=== PATIENT | male | born 1970 | race Hispanic/Latino ===

== ENCOUNTER 2020-06-16 22:38 | Emergency (ER) | payer OTHER ==
[2020-06-16] MEDS ORDERED: ACETAMINOPHEN EXTRA STRENGTH 500 MG TABLET ONE (23:17)
[2020-06-16] MEDS ORDERED: IBUPROFEN 600 MG TABLET ONE (23:17)
== END 2020-06-17 00:11 ==
LOC: EDH 22:38
DX: J06.9 Acute upper respiratory infection, unspecified (principal); Z20.828 Contact with and (suspected) exposure to other viral communicable diseases
CPT/HCPCS: 87426; 99283; U0003

== ENCOUNTER 2024-12-29 08:34 | Emergency (ER) | payer MEDICAID ==
[~2024-12-29] VITALS: Ht 175.3 cm; Wt 88.0 kg
[2024-12-29 08:57] LABS: BASOPHILS # (AUTO) 0.03 K/uL (0.00-0.20); BASOPHILS % (AUTO) 0.3 % (0.0-5.0); EOSINOPHILS # (AUTO) 0.17 K/uL (0.00-0.70); EOSINOPHILS % (AUTO) 1.8 % (0.0-8.0); HEMATOCRIT 45.5 % (42-54); IMMATURE GRANULOCYTE ABSOLUTE 0.03 K/uL (0-1); LYMPHOCYTES # (AUTO) 1.1 K/uL (1.0-4.8); LYMPHOCYTES % (AUTO) 11.3 % (21.0-51.0); MEAN CORPUSCULAR HEMOGLOBIN 31.9 pg (27.0-33.0); MEAN CORPUSCULAR HGB CONC 34.9 g/dL (32.0-36.0); MEAN CORPUSCULAR VOLUME 91.4 fL (79-99); MONOCYTES # (AUTO) 0.6 K/uL (0.1-1.0); NEUTROPHILS # (AUTO) 7.7 K/uL (1.8-7.7); NEUTROPHILS % (AUTO) 80.3 % (40.0-77.0); PLATELET COUNT (AUTO) 229 K/uL (130-400); RED BLOOD CELL COUNT(AUTO) 4.98 MIL/uL (4.50-6.20); RED CELL DISTRIBUTION WIDTH 12.6 % (11.0-15.5); WHITE BLOOD COUNT (AUTO) 9.5 K/uL (4.8-10.8)
[2024-12-29 09:06] LABS: INR 0.97 (0.85-1.15); PROTHROMBIN TIME 10.3 SEC (9.6-11.6)
[2024-12-29 09:08] LABS: PARTIAL THROMBOPLASTIN TIME 30.1 SEC (26.3-35.5)
[2024-12-29 09:13] LABS: POTASSIUM 4.1 mmol/L (3.5-5.1)
[2024-12-29 09:17] LABS: MAGNESIUM 2.1 mg/dL (1.80-2.40)
--- NOTE | 2024-12-29 09:45 | HMCIMG ---
PORTABLE CHEST RADIOGRAPH INDICATION: SOB COMPARISON: None FINDINGS: equipment monitor phototypesetting leads overlie the field of view. Shallow inspiration. Heart size is normal. The pulmonary vascularity appears normal. Generalized subpleural scarring. No evidence for consolidation. Linear opacities at both lung bases. No significant pleural effusion noted. No pneumothorax detected. IMPRESSION: Shallow inspiration. Bibasilar atelectasis and/or evolving pneumonia. Follow-up chest radiograph is advised in order to ensure resolution.
[2024-12-29 09:46] LABS: B-TYPE NATRIURETIC PEPTIDE 7 pg/mL (0-100)
--- NOTE | 2024-12-29 10:13 | EKG ---
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
[2024-12-29 10:20] LABS: SARS-CoV-2, RNA, NAAT NEGATIVE SARS CoV-2 (NEGATIVE)
[2024-12-29 10:24] LABS: INFLUENZA TYPE A Negative For Type A (NEGATIVE); INFLUENZA TYPE B Negative For Type B (NEGATIVE)
[2024-12-29 11:30] LABS: APPEARANCE,URINE CLEAR (CLEAR); BILIRUBIN,URINE NEGATIVE (NEGATIVE); COLOR,URINE YELLOW (YELLOW); GLUCOSE, URINE (UA) NEGATIVE (NEGATIVE); KETONES,URINE NEGATIVE (NEGATIVE); LEUKOCYTE ESTERASE ,URINE NEGATIVE Leu/uL (NEGATIVE); NITRATE,URINE NEGATIVE (NEGATIVE); OCCULT BLOOD,URINE NEGATIVE (NEGATIVE); PROTEIN,URINE NEGATIVE (NEGATIVE); UROBILINOGEN,URINE 0.2 mg/dL (0.2-1.0)
[2024-12-29 11:31] LABS: ADD UA MICROSCOPIC NO
[2024-12-29 11:37] LABS: AMPHET/METH SCREEN,URINE NEGATIVE (NEGATIVE); BARBITURATE SCREEN, URINE NEGATIVE (NEGATIVE); BENZODIAZEPINES SCREEN,URINE NEGATIVE (NEGATIVE); CANNABINOID SCREEN,URINE NEGATIVE (NEGATIVE); COCAINE SCREEN,URINE POSITIVE (NEGATIVE); OPIATE SCREEN,URINE NEGATIVE (NEGATIVE); PHENCYCLIDINE SCREEN,URINE NEGATIVE (NEGATIVE)
--- NOTE | 2024-12-29 12:33 | ERN ---
General Chief Complaint: Shortness of Breath Stated Complaint: SOB Time Seen by MD: 08:38 Source: patient History of Present Illness Initial Comments Patient is a 54-year-old male coming in to be evaluated for right rib pain. Per patient he felt something pop and states he pushed on it and it popped again. Mild shortness of breath. Symptoms began earlier today. Allergies: Coded Allergies: No Known Drug Allergies (Unverified Allergy, Unknown, 12/29/24) Past Medical History Past Medical History: Anxiety, Bipolar, Depression, Hypertension Past Surgical History: Other ROS Dictation CONSTITUTIONAL: No chills, no fever, no weakness, no diaphoresis, no malaise. HEAD/FACE: No signs of trauma. EENT: No eye pain, no blurred vision, no tearing, no double vision, no ear pain, no ear discharge, no nose pain, no nasal congestion, no throat pain, no throat swelling, no mouth pain. RESPIRATORY: No cough, no orthopnea, no SOB, no stridor, no wheezing. CARDIOVASCULAR: chest pain, no edema, no palpitations, no syncope. GASTROINTESTINAL/ABDOMINAL: No abdominal pain, no constipation, no diarrhea, no nausea, no vomiting. GENITOURINARY: No abnormal discharge, no dysuria, no frequent urination, no hematuria. No complaints of pain in the genitals. MUSCULOSKELETAL: No back pain, no gout, no joint pain, no joint swelling, no muscle pain, no muscle stiffness, no neck pain. INTEGUMENTARY: No change in color, no change in hair/nails, no dryness, no lesion, no lumps, no rash. NEUROLOGICAL/PSYCH: No anxiety, not depressed, no emotional problem, no headache, no numbness, no pre-existing deficit, no history of seizures, no tremors, no weakness. HEMATOLOGIC/LYMPHATIC: Not anemic, no history of blood clots, no apparent bleeding, no bruising, glands not swollen. All Systems Negative, Except as Noted. Physical Exam Physical Exam Dictation VITAL SIGNS: Reviewed. GENERAL APPEARANCE: Alert, oriented x3, no acute distress, obese. HEAD AND FACE: Non-traumatic. EYES: PERRL, pink conjunctivas, eyelid no trauma, anterior chamber clear. EARS: Pinnas intact and no signs of trauma or erythema. Ear canals clear and no discharge. TMs no erythema. NOSE: No discharge, no bleeding. OROPHARYNX: Mouth normal, teeth no caries, tongue pink. Pharynx clear, no erythema. Tonsils no exudates, no abscesses noted. Mucous membrane moist. NECK: Supple, non-tender, no thyromegaly, no masses, no JVD, no bruits. BREAST: Deferred. CHEST: No tenderness, no crepitus, no paradoxical movement, no retractions. LUNGS: Clear, well-ventilated, symmetric, no rales, no wheezing, no rhonchi, no stridor, good breath sounds bilaterally. HEART: Regular rate, regular rhythm, no murmur, no gallops. VASCULAR: No peripheral edema. ABDOMEN: Soft, positive bowel sounds, nondistended, no guarding, right upper quadrant tender, no rebound, no masses no hepatomegaly, no splenomegaly, no Lewis's sign, no hernias. RECTAL: Deferred. GENITAL: Deferred. NEUROLOGICAL: Normal speech, gross motor function intact, gross sensory function intact. MUSCULOSKELETAL: Neck nontender, full range of motion, back nontender, full range of motion. EXTREMITIES: Nontender, full range of motion. SKIN: Color pink, dry, no turgor, no rash, no lacerations, no abrasions, no contusions. LYMPHATICS: Deferred. Results Laboratory and Microbiology Lab and Micro Result Laboratory Tests Test 12/29/24 08:52 12/29/24 09:55 12/29/24 11:00 White Blood Count 9.5 K/uL (4.8-10.8) Red Blood Count 4.98 MIL/uL (4.50-6.20) Hemoglobin 15.9 g/dL (14.0-18.0) Hematocrit 45.5 % (42-54) Mean Corpuscular Volume 91.4 fL (79-99) Mean Corpuscular Hemoglobin 31.9 pg (27.0-33.0) Mean Corpuscular Hemoglobin Concent 34.9 g/dL (32.0-36.0) Red Cell Distribution Width 12.6 % (11.0-15.5) Platelet Count 229 K/uL (130-400) Mean Platelet Volume 9.3 fL (7.5-10.5) Immature Granulocyte % (Auto) 0.3 % (0-1) Neutrophils (%) (Auto) 80.3 % (40.0-77.0) H Lymphocytes (%) (Auto) 11.3 % (21.0-51.0) L Monocytes (%) (Auto) 6.0 % (3.0-13.0) Eosinophils (%) (Auto) 1.8 % (0.0-8.0) Basophils (%) (Auto) 0.3 % (0.0-5.0) Neutrophils # (Auto) 7.7 K/uL (1.8-7.7) Lymphocytes # (Auto) 1.1 K/uL (1.0-4.8) Monocytes # (Auto) 0.6 K/uL (0.1-1.0) Eosinophils # (Auto) 0.17 K/uL (0.00-0.70) Basophils # (Auto) 0.03 K/uL (0.00-0.20) Absolute Immature Granulocyte (auto 0.03 K/uL (0-1) Nucleated Red Blood Cells 0.0 % (0.0-0.19) Prothrombin Time 10.3 SEC (9.6-11.6) Prothromb Time International Ratio 0.97 (0.85-1.15) Activated Partial Thromboplast Time 30.1 SEC (26.3-35.5) Sodium Level 140 mmol/L (136-145) Potassium Level 4.1 mmol/L (3.5-5.1) Chloride Level 105 mmol/L (101-111) Carbon Dioxide Level 26 mmol/L (21-32) Blood Urea Nitrogen 15 mg/dL (7-18) Creatinine 1.0 mg/dL (0.5-1.3) Glomerular Filtration Rate Calc 88 mL/min (>90) Random Glucose 108 mg/dL (70-105) H Total Calcium 8.7 mg/dL (8.5-10.1) Magnesium Level 2.10 mg/dL (1.80-2.40) Total Creatine Kinase 87 U/L (21-232) Troponin I High Sensitivity < 4 ng/L (4-75) L B-Type Natriuretic Peptide 7 pg/mL (0-100) Influenza Type A Antigen Negative For Type A Influenza Type B Antigen Negative For Type B SARS-CoV-2, RNA, NAAT NEGATIVE SARS CoV-2 Urine Color YELLOW (YELLOW) Urine Appearance CLEAR (CLEAR) Urine pH 6.0 (5.0-8.0) Urine Specific [place] 1.024 (1.001-1.031) Urine Protein NEGATIVE mg/dL (NEGATIVE) Urine Glucose (UA) NEGATIVE mg/dL (NEGATIVE) Urine Ketones NEGATIVE mg/dL (NEGATIVE) Urine Occult Blood NEGATIVE (NEGATIVE) Urine Nitrate NEGATIVE (NEGATIVE) Urine Bilirubin NEGATIVE mg/dL (NEGATIVE) Urine Urobilinogen 0.2 mg/dL (0.2-1.0) Urine Leukocyte Esterase NEGATIVE Timmy/uL Urine Opiates Screen NEGATIVE (NEGATIVE) Urine Barbiturates Screen NEGATIVE (NEGATIVE) Urine Phencyclidine Screen NEGATIVE (NEGATIVE) Urine Amphetamines Screen NEGATIVE (NEGATIVE) Urine Benzodiazepines Screen NEGATIVE (NEGATIVE) Urine Cocaine Screen POSITIVE (NEGATIVE) H Urine Marijuana (THC) Screen NEGATIVE (NEGATIVE) Labs Reviewed?: Yes EKG/XRAY/US/CT/MRI EKG Comment 12/29/2024 time 9:15 a.m. Ventricular rate 71 Sinus rhythm [place] [address] wave elevation or depression CT Scan Comment [place] [id number] [address] IMAGING REPORT Signed PATIENT: AROLDO CHACON MR#: [id number] : 1970 SEX: M AGE: 54 LOCATION: [facility] ORDER [id number] STATUS: REG ER REPORT#: [id number] SERVICE [id number] REASON: ruq pain ORDERING PHYSICIAN: KARIME GIMENEZ MD PROCEDURE: ABD PEL WO - CT ABDOMEN/PELVIS W/O CONTRAST CT ABDOMEN/PELVIS W/O CONTRAST INDICATION: ruq pain TECHNIQUE: CT ABDOMEN/PELVIS W/O CONTRAST. Oral contrast was not given. Coronal and sagittal reformats were performed. CT was performed with one or more of the following dose reduction techniques: Automated exposure control, adjustment of the mA and/or kV according to the patient's size, or use of the iterative reconstruction technique. Comparison: None. FINDINGS: The noncontrast nature this study limits evaluation of abdominal viscera. Bilateral pulmonary fibrosis seen. Mild bilateral opacities are noted with underlying infection not excluded. Correlate clinically. Liver and gallbladder are within normal limits. The spleen, pancreas, and adrenal glands are within normal limits. Distended urinary bladder with prominent right collecting system concerning for retention in the proper clinical setting. No obstructing calculus is identified. Diverticulosis coli without CT evidence of acute diverticulitis. There is constipation. Heterogeneous prostate with parenchymal calcifications. No bowel obstruction identified. Appendix is normal in caliber. Atherosclerotic changes of the aorta with calcified plaques. Degenerative changes of the spine are seen. IMPRESSION: 1. Distended urinary bladder with prominent right collecting system concerning for retention in the proper clinical setting. No obstructing calculus is identified. 2. Diverticulosis coli without CT evidence of acute diverticulitis. There is constipation. Additional findings as described above. DICTATED BY: VLADIMIR MIRAMONTES MD DATE: 12/29/24 124 ELECTRONICALLY SIGNED BY: VLADIMIR MIRAMONTES MD DATE: 12/29/24 124 [facility] MDM: Differential diagnosis: Urinary retention, cocaine abuse, chest discomfort, c ostochondritis, Patient is a 54-year-old gentleman coming to concerning right upper quadrant pain and states that he felt as if something popped when he took a deep breath. Laboratory workup including imaging studies negative for the area. Patient was found to be on cocaine in his was counseled against doing so. Cardiac workup negative for acute findings. CT disclose urine retention bladder scan was performed and [place] was advised but patient refused. Patient will be discharged in stable condition. ED Course Orders Procedure Category Date Status Time Cbc With Differential LAB 12/29/24 Complete 08:38 Prothrombin Time With LAB 12/29/24 Complete INR 08:38 B-Type Natriuretic LAB 12/29/24 Complete Peptide 08:38 Chest 1vw RAD 12/29/24 Resulted 08:38 12 Lead Ekg Tracing- EKG 12/29/24 Complete Technical 08:38 Magnesium LAB 12/29/24 Complete 08:38 Creatine Kinase, Total LAB 12/29/24 Complete 08:38 Troponin I High LAB 12/29/24 Complete Sensitivity 08:38 Urinalysis Profile LAB 12/29/24 Complete 08:38 Partial LAB 12/29/24 Complete Thromboplastin Time 08:38 Basic Metabolic Panel LAB 12/29/24 Complete 08:38 Covid Rna Naat LAB 12/29/24 Complete 08:38 Influenza Type A & B, LAB 12/29/24 Complete Rapid 08:38 Drug Screen Urine LAB 12/29/24 Complete 08:38 Ct Abdomen/Pelvis W/O CT 12/29/24 Resulted Contrast 11:48 Vital Signs Date Time Temp Pulse Resp B/P (MAP) Pulse Ox O2 Delivery O2 Flow Rate FiO2 12/29/24 12:41 98.1 67 18 155/106 98 Room Air* 0 21 12/29/24 11:03 64 18 148/106 100 Room Air* 0 21 12/29/24 10:00 68 20 142/99 99 Room Air* 0 21 12/29/24 08:35 98.2 80 18 134/93 97 0 DX & DISP Disposition: Discharge Departure Impression: Primary Impression: Cocaine abuse Additional Impressions: Costochondritis, acute, Urinary retention Condition: Stable Additional Instructions: You have been reviewed in the emergency department at [facility] after presenting with chest pain. After considering your history, your risk factors, your EKG and your blood test troponins, have been found to be at very low risk less than (1 in 100) of having a major adverse cardiac event (like heart attack) in the near future. In the " low risk" group, the risks of doing further tests and treatment as the inpatient outweighs the benefits. In many patients in the low risk group for the test of any sort or unnecessary, however he should discuss this further with his general practitioner who will understand the medical and personal backgrounds better. Because we have never declared you" no risk" we would suggest. 1 returning for medical review if you have further episodes of chest pain/arm pain or other concerning symptoms like dizziness, collapse, palpitations or shortness of breath. 2. Following up with your local doctor who will consider the need for further testing and will also ensure that any modifiable risk factors you may have for heart disease are optimally managed. Patient will be discharged in stable condition at the moment discharge patient states , no chest pain Referrals: EVITA VILCHIS (PCP) Time of Disposition: 13:12 KARIME GIMENEZ MD Dec 29, 2024 12:33
--- NOTE | 2024-12-29 12:49 | HMCIMG ---
CT ABDOMEN/PELVIS W/O CONTRAST INDICATION: ruq pain TECHNIQUE: CT ABDOMEN/PELVIS W/O CONTRAST. Oral contrast was not given. Coronal and sagittal reformats were performed. CT was performed with one or more of the following dose reduction techniques: Automated exposure control, adjustment of the mA and/or kV according to the patient's size, or use of the iterative reconstruction technique. Comparison: None. FINDINGS: The noncontrast nature this study limits evaluation of abdominal viscera. Bilateral pulmonary fibrosis seen. Mild bilateral opacities are noted with underlying infection not excluded. Correlate clinically. Liver and gallbladder are within normal limits. The spleen, pancreas, and adrenal glands are within normal limits. Distended urinary bladder with prominent right collecting system concerning for retention in the proper clinical setting. No obstructing calculus is identified. Diverticulosis coli without CT evidence of acute diverticulitis. There is constipation. Heterogeneous prostate with parenchymal calcifications. No bowel obstruction identified. Appendix is normal in caliber. Atherosclerotic changes of the aorta with calcified plaques. Degenerative changes of the spine are seen. IMPRESSION: 1. Distended urinary bladder with prominent right collecting system concerning for retention in the proper clinical setting. No obstructing calculus is identified. 2. Diverticulosis coli without CT evidence of acute diverticulitis. There is constipation. Additional findings as described above.
--- NOTE | 2024-12-29 13:20 | NUR ---
BLADDER SCAN-392ML IN BLADDER, PER MD SUGGESTED MINOR CATH. PT REFUSED MINOR INSERTION
[2024-12-29] MEDS: ORPHENADRINE 60MG/2ML IM ONE (13:24)
[2024-12-29 15:26] VITALS: BP 138/98; PULSE 70; RESP 18; TEMP 97.2; O2SAT 98
== END 2024-12-29 15:32 | disposition home or self-care (01) ==
LOC: EDH 08:34
DX: F14.10 Cocaine abuse, uncomplicated (principal); M94.0 Chondrocostal junction syndrome [Tietze]; R33.9 Retention of urine, unspecified; F41.9 Anxiety disorder, unspecified; F32.A Depression, unspecified; I10 Essential (primary) hypertension; Z20.822 Contact with and (suspected) exposure to COVID-19
CPT/HCPCS: 36415; 71045; 74176; 80048; 80305; 81003; 82550; 83735; 83880; 84484; 85025; 85610; 85730; 87635; 87804; 93005; 96372; 99285; J2360